=== PATIENT | male | born 1990 | race Two or more races ===

== ENCOUNTER 2023-05-15 04:59 | Emergency (ER) | payer MEDICAID, OTHER ==
[~2023-05-15] VITALS: Ht 170.2 cm; Wt 80.0 kg
[2023-05-15 05:12] VITALS: BP 118/68; PULSE 78; RESP 13; O2SAT 100
== END 2023-05-15 07:44 | disposition left against medical advice (07) ==
LOC: EDBD 04:59 → ER 04:59
DX: R51.9 Headache, unspecified (principal); M54.2 Cervicalgia; Z53.21 Procedure and treatment not carried out due to patient leaving prior to being seen by health care provider